=== PATIENT | male | born 1985 | race Caucasian/White ===

== ENCOUNTER 2017-03-05 12:58 | Emergency (ER) | payer OTHER ==
[2017-03-05] MEDS ORDERED: Ibuprofen TAB* 600 MG PO ONE (13:15)
--- NOTE | 2017-03-05 14:05 | RAD ---
INDICATION: Head injury. COMPARISON: There are no prior studies available for comparison. TECHNIQUE: Contiguous axial sections of the brain were obtained from the skull base to the vertex without contrast. FINDINGS: The ventricles, cisterns and sulci are within normal limits. No significant focal abnormality or mass effect is seen. There is no evidence for hemorrhage. There is focal soft tissue swelling, a laceration and surgical mercedes present anterior to the frontal bones. No fracture is seen. The visualized portion of the paranasal sinuses and mastoid air cells appear clear. IMPRESSION: NO EVIDENCE FOR ACUTE INTRACRANIAL ABNORMALITY.
--- NOTE | 2017-03-05 14:10 | RAD ---
INDICATION: Trauma, back pain. COMPARISON: There are no prior studies available for comparison. TECHNIQUE: Contiguous axial sections were obtained beginning above the C7 vertebra and scanning through the T12 vertebra. Images were reconstructed in the sagittal and coronal planes. FINDINGS: The patient is tilted toward the left side and there is a mild dorsal scoliosis convex toward the left side. No fracture is seen. Disc spaces appear relatively maintained. There is no evidence for spinal canal narrowing. IMPRESSION: NO EVIDENCE FOR FRACTURE.
--- NOTE | 2017-03-05 14:12 | RAD ---
Indication: Back pain after fall and injury. CT of the lumbar spine was obtained in the axial plane. Sagittal and coronal reconstructed images were obtained. The vertebral bodies appear normal in height. No compression fracture is noted. At L5-S1 there is degenerative disc disease. Broad-based protrusion is noted. Mild facet arthropathy is noted. No central or foraminal stenosis is noted. At L4-L5 minimal broad-based disc protrusion flattens the thecal sac. There is left posterior lateral disc component which narrows the left foramen. At L3-L4, L2-L3 and L1-L2 the disc is preserved in height and signal. IMPRESSION: No fracture of the lumbar spine is noted. At L4-L5 there is broad-based disc protrusion slightly asymmetric towards the left narrowing the left foramen and likely impinging upon the left exiting nerve root. At L5-S1 broad-based protrusion flattens the thecal sac. No central or foraminal stenosis is noted.
--- NOTE | 2017-03-05 14:13 | RAD ---
Indication: RIGHT shoulder pain following injury. Comparison: No relevant prior exams available on the [facility] for comparison. Technique: Internal rotation AP, external rotation Grashey, scapular Y, axillary views RIGHT shoulder Report: Normal acromioclavicular and glenohumeral joint alignment. Negative for fracture. Unremarkable soft tissue contours. IMPRESSION: Negative exam.
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
[2017-03-05 15:45] VITALS: BP 124/76
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
== END 2017-03-05 15:30 | disposition home or self-care (01) ==
LOC: ED 12:58
DX: S39.92XA Unspecified injury of lower back, initial encounter (principal); Y09 Assault by unspecified means; Y93.9 Activity, unspecified; Y92.9 Unspecified place or not applicable; Y99.9 Unspecified external cause status; M47.812 Spondylosis without myelopathy or radiculopathy, cervical region; M51.26 Other intervertebral disc displacement, lumbar region
CPT/HCPCS: 70450; 72125; 72128; 72131; 99282; A9270-GY